=== PATIENT | male | born 1965 ===

== ENCOUNTER 2021-10-15 09:01 | Emergency (ER) | payer BC ==
[2021-10-15] MEDS ORDERED: Oxymetazoline 0.05% Nasal Spray 15 ML Bottle NAS STA (09:12)
[2021-10-15] MEDS ORDERED: Oxymetazoline 0.05% Nasal Spray 30 ML Bottle NAS ONE (09:31)
== END 2021-10-15 11:00 | disposition home or self-care (01) ==
LOC: MW.ED 09:01
DX: R04.0 Epistaxis (principal); E78.00 Pure hypercholesterolemia, unspecified; E11.9 Type 2 diabetes mellitus without complications; Z79.899 Other long term (current) drug therapy; Z79.84 Long term (current) use of oral hypoglycemic drugs
CPT/HCPCS: 96374; 99283; A9270

== ENCOUNTER 2021-10-15 13:07 | Emergency (ER) | payer BC ==
[2021-10-15] MEDS ORDERED: Ketorolac 30 MG/ML SDV IM ONE (14:04)
== END 2021-10-15 17:00 | disposition home or self-care (01) ==
LOC: MW.ED 13:07
DX: R04.0 Epistaxis (principal); E78.00 Pure hypercholesterolemia, unspecified; E11.9 Type 2 diabetes mellitus without complications; Z79.899 Other long term (current) drug therapy; Z79.84 Long term (current) use of oral hypoglycemic drugs
CPT/HCPCS: 30901; 96372; 99283; J1885